=== PATIENT | male | born 1945 | race Caucasian/White ===

== ENCOUNTER → 2020-07-23 17:55 | Outpatient (CLI) | payer MEDICARE, SELFPAY | PROVIDERS: PCP Dentist; Referring Provider Family Medicine; Visit Provider Family Medicine | DX: Z20.828 Contact with and (suspected) exposure to other viral communicable diseases (principal) | CPT/HCPCS: 87635; C9803; U0003 ==

== ENCOUNTER 2024-08-13 22:46 | Emergency (ER) | payer MEDICARE, SELFPAY ==
[2024-08-13 22:47] VITALS: BP 97/70; PULSE 67; RESP 17; TEMP 36.7; O2SAT 98; BMI 23.3
[2024-08-14] MEDS: Orphenadrine 100 MG Tablet PO (00:58)
[2024-08-14] MEDS: oxyCODONE 5 MG Tablet PO (00:58)
--- NOTE | 2024-08-14 01:03 | RAD_ITS ---
INDICATION: pain EXAMINATION/TECHNIQUE: X-RAY - LEFT XR Elbow Min 3 Views COMPARISON: None. FINDINGS: 3 views of the left elbow. BONES: Normal anatomic alignment without evidence of fracture or subluxation. No concerning bony lesion or abnormal sclerosis to suggest lesion. JOINTS: No significant degenerative change. SOFT TISSUES: Suggestion of small olecranon enthesophyte. RAD/Elbow min 3 Views IMPRESSION: No acute osseous abnormality of the left elbow. Electronically Signed: Brendan Gabriel MD at 1:22 EST ,
[2024-08-14 01:41] VITALS: BP 109/74; PULSE 60; RESP 17; TEMP 36.7; O2SAT 98
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
== END 2024-08-14 01:41 | disposition home or self-care (01) ==
LOC: ED 23:35
PROVIDERS: Emergency Provider Emergency Medicine; PCP Family Medicine; Visit Provider Emergency Medicine
DX: S53.402A Unspecified sprain of left elbow, initial encounter (principal); V43.52XA Car driver injured in collision with other type car in traffic accident, initial encounter
CPT/HCPCS: 73080; 99283

== ENCOUNTER → 2024-09-13 | Outpatient (CLI) | payer MEDICARE, SELFPAY ==
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
== END | disposition home or self-care (01) ==
LOC: MRI 15:25
PROVIDERS: PCP Family Medicine; Referring Provider Nurse Practitioner Family; Visit Provider Nurse Practitioner Family
DX: S46 Injury of muscle, fascia and tendon at shoulder and upper arm level (principal); X58.XXXA Exposure to other specified factors, initial encounter
CPT/HCPCS: 73218

== ENCOUNTER → 2025-04-18 | Outpatient (CLI) | payer MEDICARE, SELFPAY ==
--- NOTE | 2025-04-18 14:51 | MRI_ITS ---
PROCEDURE: SPINE LUMBAR (ROUTINE), 04/18/2025 REASON FOR EXAM: PAIN, STENOSIS, PARS DEFECT SPONDYLOLISTHESIS TECHNIQUE: Multisequence multiplanar MR of the lumbar spine was performed without IV contrast. IV contrast: None. COMPARISON: 03/13/2025 FINDINGS: Vertebral body heights are preserved. Multilevel degenerative type marrow signal changes. Similar anterolisthesis at L5-S1 of roughly 8 mm associated with bilateral pars defects. Trace likely degenerative grade 1 retrolisthesis at L2-L3 and L4-L5. Mild scoliosis better depicted radiographically in the absence of a coronal sequence. Conus medullaris terminates normally at the L1 level. Unremarkable appearance of the cauda equina. Diffuse disc desiccation. Additional level by level findings as below: T12-L1: Incompletely imaged T12 vertebral body at this level, imaged in its entirety on sagittal sequences. Near-complete loss of disc height. Diffuse disc bulging. Facet arthropathy. No significant focal spinal canal stenosis. Mild LEFT foraminal stenosis. L1-2: Near-complete loss of disc height. Diffuse disc bulging with small disc/osteophyte complex in the LEFT paracentral, subarticular, foraminal and lateral regions.. Facet arthropathy. No significant spinal canal or foraminal stenosis. L2-3: Near-complete loss of disc height. Diffuse disc bulging asymmetric to the RIGHT with superimposed RIGHT foraminal and lateral disc protrusion. Associated effacement of the RIGHT lateral recess. Facet arthropathy with mild ligamentum flavum hypertrophy. Mild focal spinal canal stenosis with incomplete effacement of CSF. Mild foraminal stenoses. L3-4: Diffuse disc bulging, asymmetric to the RIGHT, with superimposed RIGHT foraminal and lateral disc protrusion. Mild focal spinal canal stenosis. Narrowing of the RIGHT lateral recess.. Facet arthropathy with mild ligamentum flavum hypertrophy. Mild RIGHT foraminal stenosis. L4-5: Diffuse disc bulging slightly asymmetric to the RIGHT, with RIGHT foraminal and lateral disc/osteophyte complex.. No significant spinal canal stenosis. [id number] facet arthropathy. Mild RIGHT foraminal stenosis. L5-S1: Diffuse disc bulging with disc uncovering related to anterolisthesis described above. No significant focal spinal canal stenosis. Facet arthropathy. Moderate bilateral foraminal stenosis. 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 Partially imaged subcentimeter T2 bright presumed LEFT renal cyst. Cholelithiasis. MRI/Spine Lumbar (Routine) IMPRESSION: 1. 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 No high-grade focal spinal canal stenosis. Variable foraminal stenoses up to moderate bilate rally at L5-S1 2. Additional description as above. Reading Location: [id number]
== END | disposition home or self-care (01) ==
LOC: MRI 14:38
PROVIDERS: PCP Family Medicine; Referring Provider Student in an Organized Health Care Education/Training Program; Visit Provider Student in an Organized Health Care Education/Training Program
DX: M48.062 Spinal stenosis, lumbar region with neurogenic claudication (principal); M43.10 Spondylolisthesis, site unspecified; M51.360 Other intervertebral disc degeneration, lumbar region with discogenic back pain only
CPT/HCPCS: 72148

== ENCOUNTER 2025-06-11 17:54 | Emergency (ER) | payer MEDICARE, SELFPAY ==
[2025-06-11] VITALS (8 sets, daily range): BP systolic 93–136; BP diastolic 37–90; PULSE 63–79; RESP 12–26; TEMP 36.6–37.1; O2SAT 95–100; BMI 23.2
--- NOTE | 2025-06-11 18:12 | EX.ED.DYSGE1 ---
HPI History of Present Illness Chief Complaint: Syncope [facility] Medical History (Updated 06/11/25 @ 20:[address] Adriel Dunne DO) Degenerative scoliosis Home Medications ?Medication ?Instructions ?Recorded ?Last Taken ?Type NK 05/12/25 Unknown History Allergy/AdvReac Type Severity Reaction Status Date / Time No Known Allergies Allergy Verified 06/11/25 17:55 Surgical History H/O eye surgery History of hernia surgery Social History Smoking Status: Never smoker EXAM Physical Exam Const Vital Signs: 06/11/25 17:56 06/11/25 17:59 06/11/25 18:55 Temperature 98.7 F Temperature Source Oral Pulse Rate 79 64 Respiratory Rate 16 15 Respiratory Effort Normal Respiratory Pattern Normal Blood Pressure 93/56 L 123/37 H Blood Pressure Mean 68 65 Pulse Ox 98 95 Oxygen Delivery Method Room Air Room Air 06/11/25 19:00 06/11/25 19:41 06/11/25 20:00 Temperature Temperature Source Pulse Rate 65 67 63 Respiratory Rate 12 16 15 Respiratory Effort Respiratory Pattern Blood Pressure 126/60 H 111/90 H 136/71 H Blood Pressure Mean 82 97 92 Pulse Ox 99 98 99 Oxygen Delivery Method Room Air Room Air Room Air 06/11/25 21:00 Temperature Temperature Source Pulse Rate 69 Respiratory Rate 26 H Respiratory Effort Respiratory Pattern Blood Pressure 122/67 H Blood Pressure Mean 85 Pulse Ox 99 Oxygen Delivery Method Room Air MDM MDM MDM Narrative Medical decision making narrative: HISTORY OF PRESENT ILLNESS: Chief complaint: Syncope 79-year-old male history of scoliosis, degenerative disc disease but otherwise no chronic conditions and does not take medications daily presents with feeling dizzy complicated by syncope. Notes he was working outside today. States he felt dizzy and sat down. Per EMS patient initial blood pressures in the 80s systolic. Per patient has not been drinking enough water. Once EMS got there the patient tried to stand from a seated position and he passed out as result. Patient denies prodromal headache, chest pain, shortness of breath, abdominal pain. The patient denies recent surgery in the last 4 weeks or immobilization in the last 3 days, denies previous diagnosis of DVT or PE, hemoptysis, unilateral leg swelling or malignancy with treatment the last 6 months or palliative. No estrogen use noted. Denies focal numbness, weakness, loss sensation. Denies facial drooping or loss of vision. REVIEW OF SYSTEMS: Pertinent positives: Syncope, dizziness Pertinent negatives: Vomiting, diarrhea, PHYSICAL EXAM: Nursing triage notes reviewed, Vital signs reviewed Constitutional: please see [facility] HENT: MMM Eyes: Pupils equal round and reactive to light, Extraocular muscles intact Neck: No stridor, no JVD, full neck ROM Lungs: Clear to auscultation, No wheezing or rales. No increased work of breathing, no conversational dyspnea, no accessory muscle use, no nasal flaring. No respiratory distress noted Heart: Regular rate and rhythm, No murmurs, No rubs and No gallops, 2+ distal pulses (radial, femoral, posterior tibial) in all extremities Abdomen: Soft, there is no tenderness, rigidity, rebound or guarding, no obvious peritoneal signs, no palpable pulsatile abdominal masses, no auscultated abdominal bruit : No CVAT Extremities: No edema Neuro: N alert and oriented x3, neuro exam at baseline, cranial nerves II through XII are intact. No pain with extraocular muscle movement. There is negative test of skew. 5 of 5 strength in upper and lower extremities in flexion extension. Intact sensation to light touch in upper and lower extremity dermatomes. No truncal or extremity ataxia. No dysdiadochokinesia. Normal gait. 2+ reflexes in upper and lower extremities. No meningeal signs. Negative Babinski. NIH of 0. Skin: No rash or lesions noted MEDICAL DECISION MAKING: Chief Complaint: please see HPI External records reviewed: Reviewed prior cardiovascular testing Factors affecting care: none Social determinants of health: none History obtained from others: family Consults: none [facility] Narrative: Patient was initially afebrile. His blood pressures were soft initial blood pressure 93/56. Exam with no obvious focal cardiopulmonary maladies. No neurologic deficits. I considered the following differential diagnosis: Dehydration, arrhythmia, anemia, electrolyte disturbance, PE I obtained a broad lab and imaging workup to further determine if the patient was suffering from a life-threatening etiology. ALL IMAGES (IF OBTAINED) HAVE BEEN PERSONALLY REVIEWED AND INTERPRETED BY MYSELF. EKG with normal sinus rhythm rate of 62, left axis deviation, normal intervals, no STEMI I have personally reviewed the patient's chest x-ray. Chest x-ray is unremarkable for pulmonary edema, pneumothorax, pneumonia or focal cardiopulmonary abnormality. High-sensitivity troponin is negative, no evidence of myocardial ischemia x2 CBC without leukocytosis, severe anemia, no thrombocytopenia. BMP without evidence of significant electrolyte abnormalities, no anion gap, no acute kidney injury. On re-evaluation the patient's blood pressure improved after fluids to 136/71. Is able to ambulate here without significant difficulty lightheadedness or syncope. The patient's history and physical exam most consistent with dehydration given lack of oral intake and initial hypotension that improved with fluids. There is no sign of life or limb-threatening etiology such as arrhythmia, PE, aortic dissection etc. Patient is appropriate discharge home with instructions to take in more p.o. fluids and follow-up with primary care physician for further outpatient testing. The patient's history and physical exam were not consistent with pulmonary embolism as such I did not obtain a D-dimer or CT at this time The patient and/or family, caregivers express understanding. The patient and/or family, caregivers agrees with the plan. Shared decision making: I will have a discussion with the patient and or visitors regarding risk/benefits of further testing or admission. They will be made aware of of the risk/benefits inherent in this decision they will be given the opportunity to voice understanding. Total critical care time today provided was at least 0 minutes. This excludes separately billable procedures. Critical care time (if documented) is secondary to the patient having high probability of clinically significant/life threatening deterioration in the patient's condition which required my urgent intervention. Impression: 1. Hypotension 2. Syncope 3. Dehydration Dispo: discharge This note was generated with [employer] dictation software. It may contain incorrect words, spelling, and punctuation that were not noted in review of the chart prior to signing.. Lab Data Labs: Laboratory Results - last 24 hr 06/11/25 06/11/25 18:01 20:02 WBC 7.9 RBC 4.85 Hgb 15.6 Hct 44.6 MCV 92.0 MCH 32.2 H MCHC 35.0 RDW Std Deviation 41.2 RDW Coeff of [place] 12.2 Plt Count 287 MPV 10.0 Immature Gran % (Auto) 0.300 Neut % (Auto) 63.5 Lymph % (Auto) 23.4 [place] % (Auto) 10.5 H Eos % (Auto) 1.9 Baso % (Auto) 0.4 Absolute Neuts (auto) 5.0 Absolute Lymphs (auto) 1.85 Nucleated RBC % 0.3 Sodium 140 Potassium 3.3 Chloride 102 Carbon Dioxide 22.7 Anion Gap 15 BUN 24 H Creatinine 1.15 Estim Creat Clear Calc 48.54 L Est GFR (MDRD) Non-Af 66 BUN/Creatinine Ratio 21.2 H Glucose 154 H Calcium 9.4 Troponin T High Sens 7 Troponin T Hi Sens 2 Hr < 6 Radiography Diagnostic Testing: Clinical Impression(s) from Imaging Studies Chest X-Ray 06/11/25 19:00 IMPRESSION: Nodular density over the inferolateral left lung, possibly a nipple shadow or lung nodule. Follow-up imaging with nipple marker suggested. Reading Location: [facility] Discharge Plan Triage Chief Complaint: Syncope ED Provider: Adriel Dunne Dx/Rx/DC Orders Clinical Impression: Syncope, Dehydration Instructions: Causes of Syncope Prescriptions: No Action NK Primary Care Provider: Cal Batres Referrals: Cal Batres MD [Primary Care Provider] - Activity Restrictions/Additional Instructions: Thank you for trusting us with your care today! Your labs and images were reassuring and did not reveal signs of a more concerning pathology. I suspect you are suffering from dehydration. Please take an more oral fluids I recommend Body Armor, Pedialyte or Gatorade. You can also drink free water. Please take Tylenol (2 pills, 650 mg), ibuprofen (2 pills, 400 mg) every 6 hours as needed for pain and fever control. Please return to the emergency department if your symptoms change or worsen. Please follow with your primary care physician for further outpatient evaluation and management. Print Language: Pashto Disposition Disposition: Home, Self Care
--- OUTSIDE RECORDS SUMMARY | 2025-06-11 18:39 | XMS RPT_ITS | CCD ---
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 mental status. Intra-Operative Events: No Significant Anesthesia Events Further assessment by Anesthesia Service: None Other Remarks: SIGNATURE: Moncho Moreno MD PATIENT NAME: Mendoza Weldon DATE: August 29, 2019 TIME: 12:38 PM PAGER/CONTACT #: [facility] ANES PREOPon 08-29-2019 ANES PREOP HNO ID: [id number] Author: Moncho Moreno MD Service: Anesthesiology Author Type: Anesthesiologist Type: Anesthesia PreOp Filed: 08/29/2019 8:32 AM Note Text: ANESTHESIOLOGY DAY OF SURGERY NOTE SERVICE DATE: 08/29/2019 SERVICE TIME: 828 : 1945 Procedure(s) (LRB): HERNIORRHAPHY INGUINAL INITIAL HERNIA >5 YRS REDUCIBLE (ELECTIVE) (Right) Surgeon(s): Sindi Claire Estimated body mass index is 21.56 kg/m? as calculated from the following: Height as of 08/23/19: 167.6 cm (5' 6). Weight as of 08/23/19: 60.6 kg (133 lb 9.6 oz). Most recent hematocrit and potassium results: Potassium 4.3 04/14/2017 ANES DOS/PREOP NOTE: Vitals: There were no vitals filed for this visit. ACTIVE PROBLEM LIST Lumbago Family History of Malignant Neoplasm of Prostate Personal History of Colonic Polyps Family History of Malignant Neoplasm of Gastrointestinal Tract Benign Neoplasm of Colon Internal Hemorrhoids Without Mention of Complication PAST MEDICAL HISTORY Diagnosis Date - Benign neoplasm of colon PAST SURGICAL HISTORY Procedure Laterality Date - COLONOSCOP W/ OR W/O [facility] SPEC 1996 Colonoscopy - COLONOSCOP W/ OR W/O [facility] SPEC 08/12/00 Colonoscopy - COLONOSCOP W/ OR W/O [facility] SPEC 12/06/2008 Colonoscopy - COLONOSCOP W/ OR W/O [facility] SPEC 09/25/14 Colonoscopy - PAST SURGICAL HISTORY OF nasal surgery FAMILY HISTORY Problem Relation Age of Onset - Colon Cancer Father - other (hepatitis c-did drugs when younger) Brother Social History: Social History Tobacco Use - Smoking status: Former Smoker - Smokeless tobacco: Never Used - Tobacco comment: quit 8-10 years ago Substance Use Topics - Alcohol use: No - Drug use: Not on file No current facility-administered medications on file prior to encounter. Current Outpatient Medications on File Prior to Encounter Medication Sig - triamcinolone acetonide (NASACORT NASAL) Use in the nose. - meloxicam (MOBIC) 15 mg tablet TAKE ONE TABLET BY MOUTH EVERY DAY WITH FOOD (Patient not taking: Reported on 12/20/2018 ) - naproxen sodium (ALEVE) 220 mg tablet Take 1 tablet by mouth as needed. TAKE WITH FOOD Current Facility-Administered Medications Medication Dose Route Frequency Provider Last Rate Last Dose - lactated ringers infusion 30 mL/hr INTRAVENOUS CONTINUOUS Sindi Claire - ceFAZolin iv piggyback 2 g in D5W (iso-osmotic) 100 mL (ANCEF) 2 g INTRAVENOUS Pre-Op Once Sindi Claire Allergies: ALLERGIES No Known Allergies DOS EXAM: Adequate NPO status: Yes Anesthetic risks, benefits, alternatives, personnel and consent discussed: Yes Patient agrees to proceed: Yes Previous Anesthesia: No history of adverse event. Airway Assessment: MP 2; Neck ROM: Full ROM without neurologic symptoms; Airway Evaluation: No significant abnormalities Symptoms of Sleep Apnea: Age over 50 (74 year old) and Male gender Dentition: Teeth intact Additional Physical Exam: Lungs: Patient health status unchanged since recent history and physical. See history and physical for exam findings. Cardiac: Patient health status unchanged since recent history and physical. See history and physical for exam findings. Blood Products: Not anticipated for this procedure. Anesthetic Plan: MAC with Sedation and Standard ASA Monitors Pain Management Plan: Parenteral or Oral ASA Class: 2 Chronic Beta Khushbu medication administered within 24 hours: N/A I have interviewed and examined the patient. I have reviewed the medical record and/or the pre-anesthesia evaluation, pertinent labs, and test results. Significant changes in the patient's condition since the History and Physical, not otherwise documented in primary service progress notes: No This contains updated information obtained within 48 hours of Surgery/Procedure. SIGNATURE: Moncho Moreno MD PATIENT NAME: Mendoza Weldon DATE: August 29, 2019 TIME: 8:28 AM CSN: [id number] [facility] BRIEF OP NOTon 08-29-2019 BRIEF OP NOT HNO ID: [id number] Author: Sindi Claire Service: General Surgery Author Type: Physician Type: Brief Op Note Filed: 08/29/2019 11:32 AM Note Text: BRIEF OPERATIVE NOTATION FOR SURGICAL PROCEDURE. Mendoza Álvarez Jonny 1945 [id number] male LOG ID: [id number] Surgery/Procedure Date: 08/29/2019 Incision/Procedure Start Time: 10:25 AM Incision Close/Procedure End Time: 11:27 AM Surgeon(s)/Procedurali st(s) and Ophthalmology Technician(s): Surgeon(s) and Role: * Sindi Claire - Primary Registered Nurse Manager Technology: Latoya ValenzuelaRn) ISMAEL Seo REFERRING PHYSICIAN: Outpatient DEPT: [facility] PROVIDER: Leeroy POS: [id number] ANESTHESIA: Monitored Anesthesia Care ASA CLASS: 2 - mild DIAGNOSIS: right inguinal hernia PROCEDURE: open right inguinal hernia repair with mesh - [id number] IVF: 1000 EBL: 50 Specimens: hernia sac ADDITIONAL DIAGNOSES: FINDINGS: small direct and indirect COMPLICATIONS: None PMHx - PAST MEDICAL HISTORY Diagnosis Date - Benign neoplasm of colon COMORBIDITIES - None Post Op Occurrences - None Wound Classification - Clean Operative note dictated in the dictation system. - [id number] Sindi Claire MD [facility] HISTORY PHYSICALon HISTORY PHYSICAL HNO ID: [id number] Author: Sindi Claire Service: General Surgery Author Type: Physician Type: HANDP Filed: 08/29/2019 9:44 AM Note Text: HISTORY AND PHYSICAL ? Mendoza Álvarez Jonny 1945 ? ? REFERRING PHYSICIAN: Latoya Batres MD ? CHIEF COMPLAINT: Consult (Consult inguinal hernia) ? HPI: Mendoza is a 74 year old male with a complaint of a bulge and discomfort in his right inguinal region. The patient notes discomfort in this area with lifting. The symptoms have increased, over the past 3 weeks. ? The patient notes no symptoms of bowel obstruction and denies nausea or vomiting. The patient was seen by his primary care physician who felt the patient has a hernia. Mendoza was referred for evaluation and treatment. ? He has a history of colon cancer in his family with his father having colon cancer. His last colonoscopy was in 2013 ? The patient is being seen by me today at the request of Dr. Latoya Batres MD for my opinion and advice regarding a right inguinal hernia. ? ? PAST MEDICAL HISTORY PAST MEDICAL HISTORY Diagnosis Date - Benign neoplasm of colon ? ? ? PAST SURGICAL HISTORY PAST SURGICAL HISTORY Procedure Laterality Date - COLONOSCOP W/ OR W/O [facility] SPEC ? 1996 ? Colonoscopy - COLONOSCOP W/ OR W/O [facility] SPEC ? 08/12/00 ? Colonoscopy - COLONOSCOP W/ OR W/O [facility] SPEC ? 12/06/2008 ? Colonoscopy - COLONOSCOP W/ OR W/O [facility] SPEC ? 09/25/14 ? Colonoscopy - PAST SURGICAL HISTORY OF ? ? ? nasal surgery ? ? ? CURRENT MEDICATIONS Current Outpatient Medications Medication Sig - triamcinolone acetonide (NASACORT NASAL) Use in the nose. - naproxen sodium (ALEVE) 220 mg tablet Take 1 tablet by mouth as needed. TAKE WITH FOOD - meloxicam (MOBIC) 15 mg tablet TAKE ONE TABLET BY MOUTH EVERY DAY WITH FOOD (Patient not taking: Reported on 12/20/2018 ) ? No current facility-administered medications for this visit. ? ? ALLERGIES: Patient has no known allergies. ? PERSONAL HISTORY: SOCIAL HISTORY Social History ? Tobacco Use - Smoking status: Former Smoker - Smokeless tobacco: Never Used - Tobacco comment: quit 8-10 years ago Substance Use Topics - Alcohol use: No - Drug use: Not on file ? FAMILY HISTORY: FAMILY HISTORY FAMILY HISTORY Problem Relation Age of Onset - Colon Cancer Father ? - other (hepatitis c-did drugs when younger) Brother ? ? ? REVIEW OF SYMPTOMS: The review of systems data was entered by the nurse and reviewed by me ? Nursing Notes: Florin Jordan LPN 08/23/2019 2:15 PM Signed REVIEW OF SYSTEMS: General: The patient denies fatigue, denies weight loss, denies weight gain, denies feeling hot, and denies feelings of cold. Eyes: The patient denies glaucoma, denies eye injury/surgery, wears glasses or contacts. Ear/Nose/Throat: The patient denies allergies, denies hayfever, denies ear infections, and denies bloody noses. Cardiovascular: The patient denies chest pain, denies heart disease, denies high blood pressure,denies cardiac stent, denies prior heart attack, denies irregular heart beat, denies high cholesterol, denies poor circulation, denies heart failure, other cardiac issues, denies claudication, denies cold feet, denies peripheral arterial stent. Respiratory: The patient denies tuberculosis, denies pneumonia, denies frequent cough, denies pulmonary embolism, denies shortness of breath, and denies coughing up blood. Gastrointestinal: The patient denies difficulty swallowing, denies acid reflux, denies ulcers, denies vomiting, denies jaundice/hepatitis, denies gallbladder problems, denies black or tarry stools, denies hemorrhoids, denies bleeding from rectum, denies diverticulitis, denies constipation, denies diarrhea, denies loss of stool control, and NOTES hernias. Kidney/Bladder: The patient denies kidney stones, denies urine infections, and denies bloody urine. Skin: The patient denies a history of skin cancer, denies bleeding/changing moles, and denies a history of skin rash. Neurologic: The patient denies a history of epilepsy/convulsions, denies headaches, denies head/spinal injuries, and denies stroke/TIA. Psychiatric: The patient denies psychiatric medications, denies depression, and denies voices, denies substance abuse. Endocrine: The patient denies thyroid disorders, denies diabetes, and denies hormonal problems. Hematologic: The patient denies a history of bruising, denies bleeding, and denies anemia, denies blood clots. Infections: The patient denies a history of measles and mumps, denies rheumatic fever, and denies sexually transmitted diseases. Musculoskeletal: The patient denies back pain/injury, NOTES back problems, denies sciatica, denies knee/foot trouble, denies arthritis, or denies gout. ? ? When was patient's last Mammogram screening? N/A ? Last Colonoscopy: 2013 ? Florin Jordan LPN PHYSICAL EXAMINATION: ? General: The patient is 74 year old male, well nourished, well hydrated in no acute distress. The patient is oriented to time, place, and person. ? VITALS: Blood pressure 138/78, pulse 77, temperature 36.7 ?C (98.1 ?F), height 167.6 cm (5' 6), weight 60.6 kg (133 lb 9.6 oz), SpO2 99 %. Body mass index is 21.56 kg/m?. ? HEENT: Normal cephalic, ataumatic, pupils are equally round, sclera are anicteric, mucous membranes are moist, oropharynx is clear. Neck has no masses, asymmetry or lymphadenopathy. Thyroid is unremarkable. ? Respiratory: Clear to auscultation and percussion. Normal respiratory excursion and pattern. ? Cardiac: Examination is regular rate and rhythm. ? Abdominal exam: Soft, nontender, with no palpable masses. No hepatosplenomegaly. A small, reducible right inguinal hernia, no left inguinal or umbilical hernias are noted ? Rectal exam: exam deferred ? Extremities: no clubbing, cyanosis or edema. No adenopathy. ? Other: ? ? LABORATORY VALUES: As Noted ? RADIOLOGIC STUDIES: As Noted ? Assessment IMPRESSION: right inguinal hernia, high risk for colon cancer screening ? PLAN: My plan is to perform a open right inguinal hernia repair with mesh. The planned surgical procedure was discussed extensively with the patient. The risks, benefits, anticipated outcomes and possible complications were mentioned. Mendoza hairstonands that all hernia repair surgery has a chance of recurrence and/or chronic post operative pain. My staff has also explained the procedure in understandable terms and the patient was given the option to take printed material concerning the planned procedure. The patient had the opportunity to ask questions concerning the planned procedure. The patient freely consents to the planned procedure. ? I recommend the patient undergo colon cancer screening approximately 8 weeks after surgical intervention given his family history. ? My findings have been communicated to Dr. Latoya Batres MD via shared medical record. This note will be forwarded to Dr. Latoya Batres MD. ? Diagnoses: (K40.90) Right inguinal hernia (primary encounter diagnosis) ? Anticipated CPT Code: open right inguinal hernia repair with mesh - 22660-616 ? Anticipated Anesthetic: MAC with local ? Patient weight: Blood pressure 138/78, pulse 77, temperature 36.7 ?C (98.1 ?F), height 167.6 cm (5' 6), weight 60.6 kg (133 lb 9.6 oz), SpO2 99 %. BMI: Body mass index is 21.56 kg/m?. ? Planned antibiotic: Ancef 2gm IVPB director of search engine optimization to OR ? SCDs needed - Yes Return to Clinic: The patient is instructed to follow-up with me 1 week post operatively. ? Sindi Claire MD [facility] NURSING PROGon 08-29-2019 NURSING PROG HNO ID: [id number] Author: Isabela Gr) ISMAEL Wise Service: Nursing Author Type: Registered Nurse Type: Nursing Progress Note Filed: 08/29/2019 12:38 PM Note Text: 1134 pt to PACU. Awakes easily to VS. SNELL TCx4. Denies pain. PIV DANDI. R groin drsg DANDI. Ice pack applied. VSS no s/sx of distress. 1140 Lorraine VELASCO @ BS pt glasses on. 1230 report called to Charo GUEVARA in ASCU 1238 pt to ASCU Normal [facility] OPERATIVE NOon 08-29-2019 OPERATIVE NO HNO ID: [id number] Author: Sindi Claire Service: General Surgery Author Type: Physician Type: Operative Report Filed: 08/30/2019 8:39 AM Note Text: [facility] - Operative Report MENDOZA WELDON : 1945 AGE: 74. SEX: M PATIENT TYPE: A HOSP SVC: [facility] LOCATION: [facility] [facility] [place] ATTENDING PHYSICIAN: SINDI CLAIRE CSN NUMBER: [id number] DATE OF SURGERY/PROCEDURE: 08/29/2019 INCISION/PROCEDURE START TIME: 10:25. INCISION CLOSE/PROCEDURE END TIME: 11:27. PREOPERATIVE DIAGNOSIS: Right inguinal hernia. POSTOPERATIVE DIAGNOSIS: Both direct and indirect right inguinal hernia. SURGEON: Sindi Claire M.D. WEATHERSTRIP MACHINE OPERATOR: Artem Farley SURGERY/PROCEDURE: Open right inguinal hernia repair with mesh plug using a Covidien medium mesh plug with the plug cut down to small size, reference #[id number], lot #[id number], expires 12/27/2023. ANESTHESIA: Monitored anesthetic care. LOG ID: [id number]. ASA: 2. ANESTHESIOLOGIST: Moncho Cardona. IV FLUIDS: 1000 mL. ESTIMATED BLOOD LOSS: 50 mL. URINE OUTPUT: No catheter. SPECIMENS: Hernia. DRAINS: None. COMPLICATIONS: None. CONDITION: Patient taken to PACU in stable condition. DESCRIPTION OF PROCEDURE: Patient's right inguinal site was marked in the holding area. The patient concurred this planned operative site. Sign-in was performed in the holding area, verifying patient, site, procedure, position, critical nursing information, VTE and antibiotic prophylaxis. Patient received 2 grams of Ancef and sequential devices placed, brought back to the operative suite, transferred to the operating table. Following IV sedation, the right inguinal region was prepped and draped in usual fashion. Time-out was performed verifying patient, site, procedure, and position. 50:50 mixture of lidocaine Marcaine was injected into the anterior iliac spine and along the planned course of skin incision. Incision made, dissection carried down to subcutaneous fat. Dissection carried to the external oblique aponeurosis. Local anesthetic was injected into the canal and the fibers opened in the direction and the ilioinguinal nerve was identified, dissected and placed superiorly and protected. The spermatic cord was surrounded over the pubic tubercle and brought up in the operative field. The patient was noted to have a smaller direct defect along the lateral aspect of the inguinal floor. The spermatic cord was then explored. A very thin-walled indirect sac with a relatively broad base was encountered. The sac was opened. There was no sliding component and high ligation sac with a 0 Prolene suture. There was a cord lipoma that was dissected off the spermatic cord and reduced into the preperitoneal space. The mesh plug was then cut from medium size to small size, placed in the preperitoneal space, secured with interrupted 0 Prolene sutures. There was some venous bleeding with the 1st securing. The Prolene suture was removed, secured laterally. Hemostasis was obtained with pressure and a 3-0 Vicryl [id number] was placed over the small needle stick that caused the bleeding. Following this, the onlay mesh was secured with a 0 Prolene suture at the pubic tubercle running to the inguinal ligament inferiorly, to the transversus arch superiorly. The mesh was wraped around spermatic cord came out at central position more medially and the 2 tails closed with a running 0 Prolene suture. The 2 tails were placed olaterally under aponeurosis. The nerve returned to its anatomic position. External oblique was closed with running 0 Vicryl sutures. Evelina was closed with 3-0 Vicryl sutures. Skin was closed 4-0 Monocryl running subcu suture. Steri-Strips dressing was applied. The patient was taken to recovery room in stable condition. Sindi Claire M.D. RG:[id number] /[id number] [facility] PT EDon 08-29-2019 PT ED HNO ID: [id number] Author: Maureen Duvall RN Service: ? Author Type: Registered Nurse Type: Patient Education Filed: 08/29/2019 1:10 PM Note Text: POST OP LEARNING RESPONSE INSTRUCTION PROVIDED TO: Patient and family member METHOD OF INSTRUCTION: Individual instruction Written instruction - handouts Verbal instruction PATIENT / FAMILY RESPONSE: Verbalizes understanding of: INFECTION MANAGEMENT-Signs and symptoms of an infection and importance of contacting the physician PAIN MANAGEMENT-Effective strategies to manage pain in addition to pain medication PHYSICAL RESTRICTIONS-Physical restrictions and recommendations after discharge from the hospital POST-OPERATIVE INSTRUCTIONS-Correct actions to take to reduce postoperative complications FOLLOW-UP PLAN: Patient instructed to call with any further issues Follow-up with Primary Care SUPPLEMENTAL MATERIAL: None REFERRAL (RECOMMENDATION): None Electronically Signed By: Maureen Duvall RN, BSN In Department: [facility] SURGERY [facility] PT ED HNO ID: [id number] Author: Maureen Duvall RN Service: ? Author Type: Registered Nurse Type: Patient Education Filed: 08/29/2019 9:02 AM Note Text: PRE OP LEARNING ASSESSMENT PROCEDURE/SURGERY: Rt inguinal hernia repair COGNITIVE ABILITY: Alert and oriented MOTIVATION TO LEARN: Interested FAMILY SUPPORT: High - Very involved in pt care PATIENT LEARNS BEST BY: Individual Instruction Written Instruction - Hand-outs Verbal Instruction FACTORS AFFECTING LEARNING: None PHYSICAL LIMITATIONS AFFECTING LEARNING: None Electronically Signed By: Maureen Duvall RN, BSN In Department: [facility] SURGERY [facility] SURGICAL PATHOLOGYon 019 SURGICAL PATHOLOGY Specimen originated from [facility] Specimen #: [id number] Submitting Physician: SINDI CLAIRE MD FINAL DIAGNOSIS Soft tissue, right inguinal canal herniorrhaphy - Hernia sac. SDB/OH/rw 08/31/2019 Alberto Porter M.D. (Electronic Signature) _ SPECIMEN SUBMITTED A: RIGHT INGUINAL HERNIA SAC CLINICAL DATA RIGHT INGUINAL HERNIA GROSS DESCRIPTION A. Received in formalin labeled right inguinal hernia sac is a jeff-purple irregular fibromembranous soft tissue fragment measuring 1.6 x 1.0 x 0.2 cm. The specimen is entirely submitted intact in one cassette. RITA/aileen 08/29/19 Gross examination performed at [facility], [address] [place] [address] Date of Report: 08/31/2019 Date of Procedure: 08/29/2019 Date of Receipt: 08/29/2019 Submitted by: SINDI CLAIRE MD Location: [facility] Diagnostic interpretation performed at [facility], [address] [place] [address]. CLIA Number: [id number] [facility] HOSPon 08-23-2019 HOSP Patient:Juan Weldon rosinupur Álvarez MRN: Height:5' 6(1.676 m) Weight:135 lb (61.236 kg) Outpatient Medications as of 08/29/19: triamcinolone acetonide (NASACORT NASAL) meloxicam (MOBIC) 15 mg tablet naproxen sodium (ALEVE) 220 mg tablet Admission/Clinic Administered Medications as of 08/29/19: Patient has no admission medications. Problem List: Lumbago [M54.5] Family history of malignant neoplasm of prostate [Z80.42] Personal history of colonic polyps [Z86.010] Family history of malignant neoplasm of gastrointestinal tract [Z80.0] Benign neoplasm of colon [D12.6] Internal hemorrhoids without mention of complication [K64.8] Allergies: No Known Allergies Date Verified:08/29/19 Lab Values No results within the last 30 days for the following basenames: K,HCT Progress Notes ([facility]): Elliot Wallis 08/23/2019 3:53 PM Signed [facility]2019 [facility] ([facility]): Florin Jordan LPN 08/23/2019 2:15 PM Signed REVIEW OF SYSTEMS: General: The patient denies fatigue, denies weight loss, denies weight gain, denies feeling hot, and denies feelings of cold. Eyes: The patient denies glaucoma, denies eye injury/surgery, wears glasses or contacts. Ear/Nose/Throat: The patient denies allergies, denies hayfever, denies ear infections, and denies bloody noses. Cardiovascular: The patient denies chest pain, denies heart disease, denies high blood pressure,denies cardiac stent, denies prior heart attack, denies irregular heart beat, denies high cholesterol, denies poor circulation, denies heart failure, other cardiac issues, denies claudication, denies cold feet, denies peripheral arterial stent. Respiratory: The patient denies tuberculosis, denies pneumonia, denies frequent cough, denies pulmonary embolism, denies shortness of breath, and denies coughing up blood. Gastrointestinal: The patient denies difficulty swallowing, denies acid reflux, denies ulcers, denies vomiting, denies jaundice/hepatitis, denies gallbladder problems, denies black or tarry stools, denies hemorrhoids, denies bleeding from rectum, denies diverticulitis, denies constipation, denies diarrhea, denies loss of stool control, and NOTES hernias. Kidney/Bladder: The patient denies kidney stones, denies urine infections, and denies bloody urine. Skin: The patient denies a history of skin cancer, denies bleeding/changing moles, and denies a history of skin rash. Neurologic: The patient denies a history of epilepsy/convulsions, denies headaches, denies head/spinal injuries, and denies stroke/TIA. Psychiatric: The patient denies psychiatric medications, denies depression, and denies voices, denies substance abuse. Endocrine: The patient denies thyroid disorders, denies diabetes, and denies hormonal problems. Hematologic: The patient denies a history of bruising, denies bleeding, and denies anemia, denies blood clots. Infections: The patient denies a history of measles and mumps, denies rheumatic fever, and denies sexually transmitted diseases. Musculoskeletal: The patient denies back pain/injury, NOTES back problems, denies sciatica, denies knee/foot trouble, denies arthritis, or denies gout. When was patient's last Mammogram screening? N/A Last Colonoscopy: 2013 Florin Claire MD 08/23/2019 6:40 PM Signed HISTORY AND PHYSICAL Mendoza Weldon 1945 REFERRING PHYSICIAN: Latoya Batres MD CHIEF COMPLAINT: Consult (Consult inguinal hernia) HPI: Mendoza is a 74 year old male with a complaint of a bulge and discomfort in his right inguinal region. The patient notes discomfort in this area with lifting. The symptoms have increased, over the past 3 weeks. The patient notes no symptoms of bowel obstruction and denies nausea or vomiting. The patient was seen by his primary care physician who felt the patient has a hernia. Mendoza was referred for evaluation and treatment. He has a history of colon cancer in his family with his father having colon cancer. His last colonoscopy was in 2013 The patient is being seen by me today at the request of Dr. Latoya Batres MD for my opinion and advice regarding a right inguinal hernia. PAST MEDICAL HISTORY Diagnosis Date - Benign neoplasm of colon PAST SURGICAL HISTORY Procedure Laterality Date - COLONOSCOP W/ OR W/O [facility] 1996 Colonoscopy - COLONOSCOP W/ OR W/O [facility] 08/12/00 Colonoscopy - COLONOSCOP W/ OR W/O [facility] 12/06/2008 Colonoscopy - COLONOSCOP W/ OR W/O [facility] 09/25/14 Colonoscopy - PAST SURGICAL HISTORY OF nasal surgery Current Outpatient Medications Medication Sig - triamcinolone acetonide (NASACORT NASAL) Use in the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
[2025-06-11] MEDS: 0.9% Normal Saline (1000mL) 1,000 ML 1000 ML IV (18:57)
--- NOTE | 2025-06-11 19:00 | RAD_ITS ---
PROCEDURE: CHEST 1 VIEW (PORTABLE) 06/11/2025 REASON FOR EXAM: SYNCOPE TECHNIQUE: Frontal view of the chest. COMPARISON: None. FINDINGS: LUNGS AND PLEURA: Small nodular opacity projected over the inferolateral left lung. Left apical calcified granuloma and pleural thickening. No pleural effusion or pneumothorax. HEART AND MEDIASTINUM: The heart size and mediastinal contours are normal. Calcified mediastinal and left hilar lymph node. BONES: No acute osseous abnormality. RAD/Chest 1 View (Portable) IMPRESSION: Nodular density over the inferolateral left lung, possibly a nipple shadow or l shayna nodule. Follow-up imaging with nipple marker suggested. Reading Location: [id number]
[2025-06-11 19:14] LABS: Hematocrit 44.6 % (40-54); Hemoglobin 15.6 g/dL (13.0-16.5); Immature Granulocytes Count 0.020 X10^3/uL (0.0-0.0); Mean Corp Hgb Conc 35.0 g/dL (32-36); Mean Corpuscular Volume 92.0 fL (80-94); Mean Platelet Vol. 10.0 fl (6.2-12.0); NRBC Flagged by Analyzer 0.3 % (0-5); Platelet Count 287 K/mm3 (150-450); RBC Distribution Width CV 12.2 % (11.6-14.6); RBC Distribution Width SD 41.2 fl (35.1-43.9); Red Blood Count 4.85 M/mm3 (4.6-6.2); White Blood Count 7.9 K/mm3 (4.4-11.0)
[2025-06-11 19:26] LABS: Anion Gap 15 (5-15); BUN 24 mg/dL (4-19); BUN/Creat Ratio 21.2 RATIO (10-20); Calcium,Total 9.4 mg/dL (7.6-11.0); Carbon Dioxide 22.7 mmol/L (21.0-32.0); Chloride 102 mmol/L (98-108); Estimated Creatinine Clearance 48.54 ml/min (50-250); Glucose 154 mg/dL (70-99); Potassium 3.3 mmol/L (3.3-5.1); Troponin T High Sensitivity 7 ng/L (<=22)
[2025-06-11 21:09] LABS: Troponin T High Sens 2 HR < 6 ng/L (<=22)
== END 2025-06-11 21:22 | disposition home or self-care (01) ==
PROVIDERS: Emergency Provider Emergency Medicine; PCP Family Medicine; Visit Provider Emergency Medicine
DX: I95.9 Hypotension, unspecified (principal); E86.0 Dehydration; R55 Syncope and collapse
CPT/HCPCS: 71045; 80048; 84484; 85025; 93005; 99285; A4216